=== PATIENT | male | born 2000 | race Hispanic/Latino ===

== ENCOUNTER 2024-03-16 21:30 | Emergency (ER) | payer OTHER ==
[~2024-03-16] VITALS: Ht 175.3 cm; Wt 106.1 kg
[2024-03-16] MEDS: methoCARBamol 500 MG TABLET PO STA (22:35)
[2024-03-16] MEDS: NEOMY SULF/BACITRA/POLYMYXIN B 1 EACH PACKET TP STA (22:35)
--- NOTE | 2024-03-16 22:48 | NUR ---
PER DR. BUNCH, TRAUMA ALERT CAN BE DOWN GRADED
--- NOTE | 2024-03-16 23:07 | HMCIMG ---
CHEST 1VW HISTORY: Trauma COMPARISON: None FINDINGS: A frontal projection of the chest was obtained. No acute pulmonary infiltrates is seen. The heart is normal in size. Prominent interstitial markings are seen. No evidence of aortic calcification is seen. IMPRESSION: 1. No acute pulmonary infiltrate is seen.
[2024-03-16 23:15] LABS: BASOPHILS # (AUTO) 0.02 K/uL (0.00-0.20); BASOPHILS % (AUTO) 0.2 % (0.0-5.0); EOSINOPHILS % (AUTO) 1.1 % (0.0-8.0); HEMATOCRIT 40.4 % (42-54); IMMATURE GRANULOCYTE ABSOLUTE 0.03 K/uL (0-1); LYMPHOCYTES # (AUTO) 2.5 K/uL (1.0-4.8); LYMPHOCYTES % (AUTO) 27.4 % (21.0-51.0); MEAN CORPUSCULAR HEMOGLOBIN 30.1 pg (27.0-33.0); MEAN CORPUSCULAR HGB CONC 34.9 g/dL (32.0-36.0); MEAN CORPUSCULAR VOLUME 86.3 fL (80-100); MONOCYTES # (AUTO) 0.7 K/uL (0.1-1.0); MONOCYTES % (AUTO) 7.2 % (3.0-13.0); NEUTROPHILS # (AUTO) 5.9 K/uL (1.8-7.7); NEUTROPHILS % (AUTO) 63.8 % (40.0-77.0); PLATELET COUNT (AUTO) 359 K/uL (130-400); RED BLOOD CELL COUNT(AUTO) 4.68 MIL/uL (4.50-6.20); RED CELL DISTRIBUTION WIDTH 12.5 % (11.0-15.5); WHITE BLOOD COUNT (AUTO) 9.2 K/uL (4.8-10.8)
[2024-03-16] MEDS ORDERED: METH-811 PO (23:17)
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
[2024-03-16 23:25] VITALS: BP 127/71; PULSE 63; RESP 18; TEMP 97.9; O2SAT 98
[2024-03-16 23:28] LABS: POTASSIUM 3.8 mmol/L (3.5-5.1)
--- NOTE | 2024-03-17 07:05 | EKG ---
[facility] Test Date: 2024-03-16 Test Time: 22:50:55 Pat Name: LINO GALAVIZ Department: [facility] Room: Gender: M [employer] Ele[employer] Agent: [id number] : 2000 Requested By: WHITNEY BUNCH Order Number: [id number] Reading MD: Greta Herrera Measurements Intervals [place] Rate: 63 P: 10 HI: 136 QRS: 32 QRSD: 112 T: 18 QT: 391 QTc: 401 Interpretive Statements Sinus rhythm No previous ECG available for comparison Electronically Signed On 03-17-2024 09:24:27 HOT BLASTER by Greta Herrera Please click the below link to view image of tracing.
== END 2024-03-16 23:27 | disposition home or self-care (01) ==
LOC: EDH 21:30
DX: S60.811A Abrasion of right wrist, initial encounter (principal); V89.2XXA Person injured in unspecified motor-vehicle accident, traffic, initial encounter; Y93.89 Activity, other specified; Y92.89 Other specified places as the place of occurrence of the external cause; Y99.8 Other external cause status
CPT/HCPCS: 36415; 71045; 73100; 80048; 85025; 93005; 99285